=== PATIENT | female | born 1995 | race Caucasian/White ===

== ENCOUNTER 2017-05-29 23:15 | Outpatient (CLI) | payer OTHER, MEDICAID ==
[2017-05-30] MEDS ORDERED: LACTATED RINGER'S 500 ML IV (00:17)
[2017-05-30] MEDS ORDERED: LACTATED RINGER'S 1,000 ML IV (00:17)
[2017-05-30 00:45] LABS: ADD MAN DIFF? NO
[2017-05-30 00:48] LABS: WHITE BLOOD COUNT 12.1 10^3/ul (4.8-10.8)
[2017-05-30 00:48] LABS: BASOPHILS % 0.2 % (0.0-2.0); EOSINOPHILS # 0.2 10^3/ul (0.0-0.5); EOSINOPHILS % 1.5 % (0.0-7.0); HEMATOCRIT 28.8 % (37.0-47.0); HEMOGLOBIN 9.3 g/dl (12.0-16.0); LYMPHOCYTES # 2.1 10^3/ul (0.8-2.9); LYMPHOCYTES % 17.3 % (15.0-51.0); MEAN CORPUSCULAR HEMOGLOBIN 25.1 pg (29.0-33.0); MEAN CORPUSCULAR HGB CONC 32.3 g/dl (32.0-37.0); MEAN CORPUSCULAR VOLUME 77.6 fl (82.0-101.0); MEAN PLATELET VOLUME 10.4 fl (7.4-10.4); MONOCYTE # 0.4 10^3/ul (0.3-0.9); MONOCYTES % 3.6 % (0.0-11.0); NEUTROPHIL # 9.2 10^3/ul (1.6-7.5); NEUTROPHILS % 76.2 % (39.0-77.0); PLATELET COUNT 201 10^3/UL (140-415); RED BLOOD COUNT 3.71 10^6/ul (4.20-5.40); RED CELL DISTRIBUTION WIDTH 16.8 % (11.5-14.5)
[2017-05-30 00:55] LABS: ADD UMIC NO; UR ASCORBIC ACID NEGATIVE (NEGATIVE); UR BILIRUBIN (Dip) NEGATIVE (NEGATIVE); UR BLOOD (Dip) NEGATIVE (NEGATIVE); UR CLARITY CLEAR (CLEAR); UR COLOR YELLOW (YELLOW); UR GLUCOSE (Dip) NEGATIVE (NEGATIVE); UR KETONES (Dip) NEGATIVE (NEGATIVE); UR LEUKOCYTE ESTERASE (Dip) NEGATIVE Leu/ul (NEGATIVE); UR NITRITE (Dip) NEGATIVE (NEGATIVE); UR SPECIFIC GRAVITY (Dip) 1.016 (1.003-1.030); UR TOTAL PROTEIN (Dip) NEGATIVE (NEGATIVE); UR UROBILINOGEN (Dip) NEGATIVE (NEGATIVE)
[2017-05-30 01:09] LABS: ALANINE AMINOTRANSFERASE 21 IU/L (13-69); ALBUMIN 3.6 g/dl (3.3-4.9); ALBUMIN/GLOBULIN RATIO 1.12; ALKALINE PHOSPHATASE 169 IU/L (42-121); ANION GAP 15 (8-16); ASPARTATE AMINO TRANSFERASE 15 IU/L (15-46); BLOOD UREA NITROGEN 8 mg/dl (7-20); CALCIUM 8.9 mg/dl (8.4-10.2); CARBON DIOXIDE 22 mmol/L (21-31); CHLORIDE 107 mmol/L (97-110); CREATININE 0.56 mg/dl (0.44-1.00); GLUCOSE 86 mg/dl (70-220); POTASSIUM 3.7 mmol/L (3.5-5.1); SODIUM 140 mmol/L (135-144); TOTAL PROTEIN 6.8 g/dl (6.1-8.1)
[2017-05-30] MEDS: ONDANSETRON 4 MG INJ IV (01:27)
== END 2017-05-30 03:50 | disposition home or self-care (01) ==
LOC: OBT 23:15 → L-D 23:15
DX: O26.892 Other specified pregnancy related conditions, second trimester (principal); R10.9 Unspecified abdominal pain; R19.7 Diarrhea, unspecified; M54.5 Low back pain; O21.8 Other vomiting complicating pregnancy; Z3A.25 25 weeks gestation of pregnancy
CPT/HCPCS: 36415; 76815; 76817; 80053; 81003; 82731; 85025; 87086; 96360; 96361

== ENCOUNTER 2017-09-02 16:29 | Inpatient (IN) | payer OTHER ==
[2017-09-02 17:21] LABS: ADD MAN DIFF? NO
[2017-09-02 17:26] LABS: WHITE BLOOD COUNT 9.7 10^3/ul (4.8-10.8)
[2017-09-02 17:26] LABS: BASOPHILS % 0.3 % (0.0-2.0); EOSINOPHILS # 0.1 10^3/ul (0.0-0.5); EOSINOPHILS % 0.8 % (0.0-7.0); HEMATOCRIT 32.7 % (37.0-47.0); HEMOGLOBIN 10.5 g/dl (12.0-16.0); LYMPHOCYTES # 1.7 10^3/ul (0.8-2.9); LYMPHOCYTES % 17.3 % (15.0-51.0); MEAN CORPUSCULAR HEMOGLOBIN 25.5 pg (29.0-33.0); MEAN CORPUSCULAR HGB CONC 32.1 g/dl (32.0-37.0); MEAN CORPUSCULAR VOLUME 79.6 fl (82.0-101.0); MEAN PLATELET VOLUME 10.4 fl (7.4-10.4); MONOCYTE # 0.4 10^3/ul (0.3-0.9); MONOCYTES % 4.4 % (0.0-11.0); NEUTROPHIL # 7.4 10^3/ul (1.6-7.5); NEUTROPHILS % 76.4 % (39.0-77.0); PLATELET COUNT 215 10^3/UL (140-415); RED BLOOD COUNT 4.11 10^6/ul (4.20-5.40); RED CELL DISTRIBUTION WIDTH 16.9 % (11.5-14.5)
[2017-09-02 17:45] LABS: ALANINE AMINOTRANSFERASE 15 IU/L (13-69); ALBUMIN 3.5 g/dl (3.3-4.9); ALBUMIN/GLOBULIN RATIO 0.97; ALKALINE PHOSPHATASE 222 IU/L (42-121); ANION GAP 15 (8-16); ASPARTATE AMINO TRANSFERASE 13 IU/L (15-46); BILIRUBIN,INDIRECT 0.2 mg/dl (0-1.1); BILIRUBIN,TOTAL 0.2 mg/dl (0.2-1.3); BLOOD UREA NITROGEN 14 mg/dl (7-20); CARBON DIOXIDE 18 mmol/L (21-31); CHLORIDE 110 mmol/L (97-110); CREATININE 0.77 mg/dl (0.44-1.00); GLUCOSE 106 mg/dl (70-220); POTASSIUM 4.4 mmol/L (3.5-5.1); SODIUM 139 mmol/L (135-144); TOTAL PROTEIN 7.1 g/dl (6.1-8.1)
[2017-09-02 17:49] LABS: PROTIME 12.2 Sec (11.9-14.9)
[2017-09-02 18:05] LABS: ADD UMIC NO; UR ASCORBIC ACID NEGATIVE (NEGATIVE); UR BILIRUBIN (Dip) NEGATIVE (NEGATIVE); UR BLOOD (Dip) NEGATIVE (NEGATIVE); UR CLARITY CLEAR (CLEAR); UR COLOR YELLOW (YELLOW); UR GLUCOSE (Dip) NEGATIVE (NEGATIVE); UR KETONES (Dip) NEGATIVE (NEGATIVE); UR LEUKOCYTE ESTERASE (Dip) NEGATIVE Leu/ul (NEGATIVE); UR NITRITE (Dip) NEGATIVE (NEGATIVE); UR SPECIFIC GRAVITY (Dip) 1.023 (1.003-1.030); UR TOTAL PROTEIN (Dip) NEGATIVE (NEGATIVE); UR UROBILINOGEN (Dip) NEGATIVE (NEGATIVE)
[2017-09-02] MEDS: LACTATED RINGER'S 1,000 ML IV ×2 (19:08→22:29)
[2017-09-02] MEDS: ONDANSETRON 4 MG INJ IV (20:43)
[2017-09-03] MEDS: LACTATED RINGER'S 1,000 ML IV (05:58)
[2017-09-03 08:19] LABS: ADD MAN DIFF? NO
[2017-09-03 08:22] LABS: WHITE BLOOD COUNT 8.3 10^3/ul (4.8-10.8)
[2017-09-03 08:22] LABS: BASOPHILS % 0.2 % (0.0-2.0); EOSINOPHILS # 0.1 10^3/ul (0.0-0.5); EOSINOPHILS % 1.4 % (0.0-7.0); HEMATOCRIT 28.9 % (37.0-47.0); HEMOGLOBIN 9.1 g/dl (12.0-16.0); LYMPHOCYTES % 23.9 % (15.0-51.0); MEAN CORPUSCULAR HEMOGLOBIN 24.9 pg (29.0-33.0); MEAN CORPUSCULAR HGB CONC 31.5 g/dl (32.0-37.0); MEAN CORPUSCULAR VOLUME 79.2 fl (82.0-101.0); MEAN PLATELET VOLUME 11.1 fl (7.4-10.4); MONOCYTE # 0.4 10^3/ul (0.3-0.9); MONOCYTES % 5.2 % (0.0-11.0); NEUTROPHIL # 5.7 10^3/ul (1.6-7.5); NEUTROPHILS % 68.3 % (39.0-77.0); PLATELET COUNT 189 10^3/UL (140-415); RED BLOOD COUNT 3.65 10^6/ul (4.20-5.40); RED CELL DISTRIBUTION WIDTH 17.2 % (11.5-14.5)
[2017-09-03] MEDS: PRENATAL VITAMIN PO (08:26)
[2017-09-03 09:17] LABS: ALANINE AMINOTRANSFERASE 18 IU/L (13-69); ALBUMIN/GLOBULIN RATIO 1.03; ALKALINE PHOSPHATASE 200 IU/L (42-121); ANION GAP 14 (8-16); ASPARTATE AMINO TRANSFERASE 13 IU/L (15-46); BILIRUBIN,INDIRECT 0.1 mg/dl (0-1.1); BILIRUBIN,TOTAL 0.1 mg/dl (0.2-1.3); BLOOD UREA NITROGEN 14 mg/dl (7-20); CALCIUM 8.8 mg/dl (8.4-10.2); CARBON DIOXIDE 23 mmol/L (21-31); CHLORIDE 106 mmol/L (97-110); CREATININE 0.68 mg/dl (0.44-1.00); GLUCOSE 85 mg/dl (70-220); POTASSIUM 4.2 mmol/L (3.5-5.1); SODIUM 139 mmol/L (135-144); TOTAL PROTEIN 5.9 g/dl (6.1-8.1); URIC ACID 5.6 mg/dl (3.1-7.9)
== END 2017-09-03 12:30 | disposition home or self-care (01) | DRG 781 ==
LOC: OBT 16:29 → L-D 16:31 → OBT 19:00 → PP1 19:00
DX: O26.893 Other specified pregnancy related conditions, third trimester (principal); Z3A.39 39 weeks gestation of pregnancy; R11.0 Nausea
CPT/HCPCS: 76815; 76818; 80053; 81003; 84560; 85025; 85384; 85610; 85730

== ENCOUNTER 2017-09-08 08:55 | Inpatient (IN) | payer OTHER ==
[2017-09-08] MEDS ORDERED: CARBOPROST 250 MCG INJ IM (09:30)
[2017-09-08] MEDS ORDERED: IBUPROFEN 600 MG TAB PO (09:30)
[2017-09-08] MEDS ORDERED: LIDOCAINE 1% (MPF) 30 ML INJ INJ (09:30)
[2017-09-08] MEDS ORDERED: OXYTOCIN 30 UNITS/LR 500 ML IV ×2 (09:30)
[2017-09-08] MEDS ORDERED: BUTORPHANOL 2 MG INJ IV (09:30)
[2017-09-08] MEDS ORDERED: MISOPROSTOL 200 MCG TAB PR (09:30)
[2017-09-08] MEDS ORDERED: METHYLERGONOVINE 0.2 MG INJ IM (09:30)
[2017-09-08] MEDS: LACTATED RINGER'S 1,000 ML IV* ×2 (10:16→17:25)
[2017-09-08 10:23] LABS: ADD MAN DIFF? NO
[2017-09-08 10:28] LABS: BASOPHILS % 0.3 % (0.0-2.0); EOSINOPHILS # 0.1 10^3/ul (0.0-0.5); HEMOGLOBIN 9.9 g/dl (12.0-16.0); LYMPHOCYTES # 1.9 10^3/ul (0.8-2.9); LYMPHOCYTES % 18.1 % (15.0-51.0); MEAN CORPUSCULAR HEMOGLOBIN 25.1 pg (29.0-33.0); MEAN CORPUSCULAR HGB CONC 31.9 g/dl (32.0-37.0); MEAN CORPUSCULAR VOLUME 78.7 fl (82.0-101.0); MEAN PLATELET VOLUME 11.3 fl (7.4-10.4); MONOCYTE # 0.4 10^3/ul (0.3-0.9); MONOCYTES % 3.9 % (0.0-11.0); NEUTROPHIL # 7.7 10^3/ul (1.6-7.5); NEUTROPHILS % 75.3 % (39.0-77.0); PLATELET COUNT 204 10^3/UL (140-415); RED BLOOD COUNT 3.94 10^6/ul (4.20-5.40); RED CELL DISTRIBUTION WIDTH 17.1 % (11.5-14.5)
[2017-09-08 10:28] LABS: WHITE BLOOD COUNT 10.3 10^3/ul (4.8-10.8)
[2017-09-08 10:47] LABS: INR 0.94; PROTIME 12.7 Sec (11.9-14.9)
[2017-09-08 10:48] LABS: PARTIAL THROMBOPLASTIN TIME 25.5 Sec (25.0-35.0)
[2017-09-08] MEDS: MISOPROSTOL 25 MCG CAPSULE PO ×3 (13:34→21:37)
[2017-09-08 21:44] LABS: RAPID PLASMA REAGIN NONREACTIVE (NR)
[2017-09-09] MEDS ORDERED: CEFAZOLIN 2 GM/50 ML (PMX) 50 ML IVPB (00:30)
[2017-09-09] MEDS: LACTATED RINGER'S 1,000 ML IV* ×3 (01:15→17:50)
[2017-09-09] MEDS: MISOPROSTOL 25 MCG CAPSULE PO ×3 (03:54→12:00)
[2017-09-09] MEDS ORDERED: OXYTOCIN 30 UNITS/LR 500 ML BAG IV (07:00)
[2017-09-09] MEDS ORDERED: CEFAZOLIN 3 GM in DEXTROSE 5% 100 ML IV (16:30)
[2017-09-09] MEDS ORDERED: FENTAnyl 50 MCG/ML VIAL (17:04)
[2017-09-09] MEDS ORDERED: BUPIVACAINE 0.75%/DEXT (SPINAL) 2 ML INJ (17:04)
[2017-09-09] MEDS ORDERED: morphine SULFATE/PF (10 MG/10 ML) INJ (17:04)
[2017-09-09] MEDS ORDERED: ONDANSETRON 4 MG INJ (20:48)
[2017-09-09] MEDS ORDERED: NALOXONE (0.4 MG/ML) INJ IV (21:30)
[2017-09-09] MEDS ORDERED: ZOLPIDEM 5 MG TAB PO (21:30)
[2017-09-09] MEDS ORDERED: HYDROmorphONE 0.5 MG/0.5 ML SYG IV ×2 (21:30)
[2017-09-09] MEDS ORDERED: DIPHENHYDRAMINE 50 MG INJ IV (21:30)
[2017-09-09] MEDS: OXYTOCIN 30 UNITS/LR 500 ML IV ×2 (21:50→22:32)
[2017-09-09] MEDS: LACTATED RINGER'S 1,000 ML IV (21:50)
[2017-09-09] MEDS ORDERED: METHYLERGONOVINE 0.2 MG TAB PO (22:00)
[2017-09-09] MEDS ORDERED: HYDROCODONE/APAP (5/325) TAB PO (22:00)
[2017-09-09] MEDS ORDERED: METHYLERGONOVINE 0.2 MG INJ IM (22:00)
[2017-09-09] MEDS ORDERED: MISOPROSTOL 200 MCG TAB PR (22:00)
[2017-09-09] MEDS: CEFAZOLIN 1 GM/50 ML (PMX) 50 ML IV (22:00)
[2017-09-09] MEDS ORDERED: OXYCODONE/ACETAMINOPHEN (5/325) TAB PO (22:00)
[2017-09-09] MEDS ORDERED: OXYTOCIN 30 UNITS/LR 500 ML IV (22:00)
[2017-09-09] MEDS: IBUPROFEN 800 MG TAB PO (22:00)
[2017-09-09] MEDS ORDERED: CARBOPROST 250 MCG INJ IM (22:00)
[2017-09-10 01:25] LABS: ADD MAN DIFF? NO
[2017-09-10 01:28] LABS: WHITE BLOOD COUNT 12.6 10^3/ul (4.8-10.8)
[2017-09-10 01:28] LABS: BASOPHILS % 0.2 % (0.0-2.0); EOSINOPHILS % 0.1 % (0.0-7.0); HEMATOCRIT 31.4 % (37.0-47.0); LYMPHOCYTES # 1.5 10^3/ul (0.8-2.9); LYMPHOCYTES % 11.6 % (15.0-51.0); MEAN CORPUSCULAR HEMOGLOBIN 25.5 pg (29.0-33.0); MEAN CORPUSCULAR HGB CONC 31.8 g/dl (32.0-37.0); MEAN CORPUSCULAR VOLUME 80.1 fl (82.0-101.0); MEAN PLATELET VOLUME 11.1 fl (7.4-10.4); MONOCYTE # 0.4 10^3/ul (0.3-0.9); MONOCYTES % 3.3 % (0.0-11.0); NEUTROPHIL # 10.6 10^3/ul (1.6-7.5); PLATELET COUNT 197 10^3/UL (140-415); RED BLOOD COUNT 3.92 10^6/ul (4.20-5.40); RED CELL DISTRIBUTION WIDTH 16.7 % (11.5-14.5)
[2017-09-10] MEDS: CEFAZOLIN 1 GM/50 ML (PMX) 50 ML IVPB (04:41)
[2017-09-10] MEDS: LANOLIN 7 GM TUBE TOP (04:42)
[2017-09-10] MEDS: LACTATED RINGER'S 1,000 ML IV ×3 (05:50→20:59)
[2017-09-10] MEDS: IBUPROFEN 800 MG TAB PO ×4 (06:00→21:34)
[2017-09-10] MEDS: KETOROLAC 30 MG INJ IV ×2 (06:08→17:52)
[2017-09-10] MEDS: SENNA/DOCUSATE NA (8.6MG/50MG) TAB PO ×2 (10:27→20:59)
[2017-09-10 12:16] LABS: ANION GAP 13 (8-16); BLOOD UREA NITROGEN 9 mg/dl (7-20); CALCIUM 8.3 mg/dl (8.4-10.2); CARBON DIOXIDE 25 mmol/L (21-31); CHLORIDE 102 mmol/L (97-110); CREATININE 0.67 mg/dl (0.44-1.00); GLUCOSE 79 mg/dl (70-220); SODIUM 136 mmol/L (135-144)
[2017-09-10] MEDS: ONDANSETRON 4 MG INJ IV (20:58)
[2017-09-11] MEDS ORDERED: HYDROmorphONE 0.5 MG/0.5 ML SYG IV (01:30)
[2017-09-11] MEDS: METOCLOPRAMIDE 10 MG INJ IV ×2 (01:45→12:40)
[2017-09-11] MEDS: IBUPROFEN 800 MG TAB PO ×2 (06:05→21:54)
[2017-09-11] MEDS: LACTATED RINGER'S 1,000 ML IV ×3 (06:08→21:50)
[2017-09-11] MEDS: MAGNESIUM HYDROXIDE 30ML CUP PO (09:51)
[2017-09-11] MEDS: BISACODYL 10 MG SUPP PR (09:51)
[2017-09-11] MEDS: SENNA/DOCUSATE NA (8.6MG/50MG) TAB PO ×2 (09:51→21:54)
[2017-09-11 11:07] LABS: ADD MAN DIFF? NO
[2017-09-11 11:15] LABS: WHITE BLOOD COUNT 19.8 10^3/ul (4.8-10.8)
[2017-09-11 11:15] LABS: BASOPHILS % 0.2 % (0.0-2.0); EOSINOPHILS % 0.1 % (0.0-7.0); HEMATOCRIT 30.1 % (37.0-47.0); HEMOGLOBIN 9.6 g/dl (12.0-16.0); LYMPHOCYTES # 2.2 10^3/ul (0.8-2.9); LYMPHOCYTES % 10.8 % (15.0-51.0); MEAN CORPUSCULAR HEMOGLOBIN 25.6 pg (29.0-33.0); MEAN CORPUSCULAR HGB CONC 31.9 g/dl (32.0-37.0); MEAN CORPUSCULAR VOLUME 80.3 fl (82.0-101.0); MEAN PLATELET VOLUME 10.6 fl (7.4-10.4); MONOCYTE # 0.9 10^3/ul (0.3-0.9); MONOCYTES % 4.3 % (0.0-11.0); NEUTROPHIL # 16.6 10^3/ul (1.6-7.5); NEUTROPHILS % 83.4 % (39.0-77.0); PLATELET COUNT 228 10^3/UL (140-415); RED BLOOD COUNT 3.75 10^6/ul (4.20-5.40); RED CELL DISTRIBUTION WIDTH 17.5 % (11.5-14.5)
[2017-09-11] MEDS: AMPICILLIN/SULB 3 GM/NS (PMX) 100 ML IVPB ×3 (12:40→23:55)
[2017-09-11] MEDS: HYDROCODONE/APAP (5/325) TAB PO (18:21)
[2017-09-11] MEDS ORDERED: BISACODYL 10 MG SUPP PR (20:00)
[2017-09-11] MEDS ORDERED: MAGNESIUM HYDROXIDE 30ML CUP PO (20:00)
[2017-09-12] MEDS: IBUPROFEN 800 MG TAB PO (05:34)
[2017-09-12] MEDS: AMPICILLIN/SULB 3 GM/NS (PMX) 100 ML IVPB (05:34)
[2017-09-12] MEDS: LACTATED RINGER'S 1,000 ML IV (05:50)
[2017-09-12] MEDS ORDERED: MEASLES,MUMPS,RUBELLA VACCINE INJ SC* (09:00)
[2017-09-12] MEDS ORDERED: DIPHTH/TET/ACEL PERTUSS (ADULT) 0.5 ML VIAL IM* (09:00)
[2017-09-12] MEDS: SENNA/DOCUSATE NA (8.6MG/50MG) TAB PO (09:40)
[2017-09-12 10:27] LABS: ADD MAN DIFF? NO
[2017-09-12 10:36] LABS: BASOPHILS % 0.2 % (0.0-2.0); EOSINOPHILS # 0.2 10^3/ul (0.0-0.5); EOSINOPHILS % 2.1 % (0.0-7.0); HEMOGLOBIN 8.1 g/dl (12.0-16.0); LYMPHOCYTES # 1.6 10^3/ul (0.8-2.9); MEAN CORPUSCULAR HEMOGLOBIN 25.3 pg (29.0-33.0); MEAN CORPUSCULAR HGB CONC 31.2 g/dl (32.0-37.0); MEAN CORPUSCULAR VOLUME 81.3 fl (82.0-101.0); MEAN PLATELET VOLUME 10.9 fl (7.4-10.4); MONOCYTE # 0.4 10^3/ul (0.3-0.9); NEUTROPHIL # 8.4 10^3/ul (1.6-7.5); NEUTROPHILS % 77.6 % (39.0-77.0); PLATELET COUNT 186 10^3/UL (140-415); RED CELL DISTRIBUTION WIDTH 17.8 % (11.5-14.5)
[2017-09-12 10:36] LABS: WHITE BLOOD COUNT 10.8 10^3/ul (4.8-10.8)
== END 2017-09-12 16:15 | disposition home or self-care (01) | DRG 765 ==
LOC: PP1 09-10 00:21 → L-D 08:55
PROVIDERS: Obstetrics & Gynecology
PROC: 10D00Z1 Extraction of Products of Conception, Low, Open Approach (ICD-10-PCS; principal; 2017-09-09 20:15)
DX: O99.344 Other mental disorders complicating childbirth (principal); Z68.42 Body mass index [BMI] 45.0-49.9, adult; O48.0 Post-term pregnancy; Z3A.40 40 weeks gestation of pregnancy; O99.214 Obesity complicating childbirth; E66.9 Obesity, unspecified; F41.9 Anxiety disorder, unspecified; Z37.0 Single live birth
CPT/HCPCS: 76815; 80048; 85025; 85610; 85730; 86592; 86850; 86900; 86901; 99464

== ENCOUNTER 2018-02-17 10:47 | Day surgery (SDC) | payer OTHER ==
[~2018-02-17 10:47] MED LIST: GLYCOPYRROLATE 1 MG INJ
[2018-02-17] MEDS ORDERED: SOD CHLORIDE 0.9% 1,000 ML IV (11:00)
[2018-02-17] MEDS ORDERED: CEFAZOLIN 2 GM/50 ML (PMX) 50 ML IVPB (11:00)
[2018-02-17] MEDS ORDERED: PROPOFOL 100 ML (12:51)
[2018-02-17] MEDS ORDERED: ROCURONIUM 50 MG INJ (12:53)
[2018-02-17] MEDS ORDERED: LIDOCAINE 2% (SDV) 5 ML INJ (12:53)
[2018-02-17] MEDS ORDERED: CEFAZOLIN 1 GM INJ (12:53)
[2018-02-17] MEDS ORDERED: DEXAMETHASONE 4 MG/ML 1 ML INJ (13:26)
[2018-02-17] MEDS ORDERED: ONDANSETRON 4 MG INJ (13:26)
[2018-02-17] MEDS: BUPIVACAINE 0.25%/EPI (MDV) 50 ML VIAL INJ (14:19)
[2018-02-17] MEDS ORDERED: GLYCOPYRROLATE 0.4 MG INJ (14:21)
[2018-02-17] MEDS ORDERED: NEOSTIGMINE 3 MG/3 ML SYRINGE (14:21)
[2018-02-17] MEDS ORDERED: KETOROLAC 30 MG INJ (14:21)
[2018-02-17] MEDS ORDERED: ONDANSETRON 4 MG INJ IV (14:30)
[2018-02-17] MEDS ORDERED: morphine 2 MG INJ IV (14:30)
[2018-02-17] MEDS ORDERED: IBUPROFEN 600 MG TAB PO (14:30)
[2018-02-17] MEDS ORDERED: HYDROCODONE/APAP (5/325) TAB PO (14:30)
[2018-02-17] MEDS ORDERED: KETOROLAC 30 MG INJ IV ×2 (14:30→15:00)
[2018-02-17] MEDS: DIPHENHYDRAMINE 50 MG INJ IV (14:57)
[2018-02-17] MEDS: ONDANSETRON 4 MG INJ IV (14:57)
[2018-02-17] MEDS: HYDROmorphONE 1 MG/5 ML IV SYRINGE IV (14:58)
[2018-02-17] MEDS ORDERED: METOCLOPRAMIDE 10 MG INJ IV (15:00)
[2018-02-17] MEDS ORDERED: HYDROmorphONE 1 MG/5 ML IV SYRINGE IV ×2 (15:00)
[2018-02-17] MEDS ORDERED: MEPERIDINE 25 MG INJ IV (15:00)
[2018-02-17] MEDS ORDERED: FENTAnyl 50 MCG/ML VIAL IV ×3 (15:00)
[2018-02-17] MEDS ORDERED: hydrALAzine 20 MG INJ IV (15:00)
[2018-02-17] MEDS ORDERED: MIDAZOLAM 1 MG/ML 2 ML INJ IV (15:00)
[2018-02-17] MEDS ORDERED: EPHEDrine SULFATE 50 MG/5 ML SYG IV (15:00)
[2018-02-17] MEDS ORDERED: LABETALOL HCL 20MG INJ IV (15:00)
[2018-02-17] MEDS ORDERED: OXYCODONE/ACETAMINOPHEN (5/325) TAB PO ×2 (15:00)
[2018-02-17] MEDS: HYDROCODONE/APAP (5/325) TAB PO (16:07)
== END 2018-02-17 16:35 | disposition home or self-care (01) ==
LOC: SDS 10:47
DX: K80.10 Calculus of gallbladder with chronic cholecystitis without obstruction (principal)
CPT/HCPCS: 47562; 88304